=== PATIENT | male | born 1945 | race Caucasian/White ===

== ENCOUNTER 2016-08-15 00:18 | Emergency (ER) | payer OTHER ==
[2016-08-15] MEDS ORDERED: KETOROLAC 15 MG/ML VIAL IVP STA (00:35)
[2016-08-15] MEDS ORDERED: SODIUM CHLORIDE 0.9% 1,000 ML IV ONE (00:35)
[2016-08-15] MEDS ORDERED: ONDANSETRON 4 MG/2 ML VIAL IVP STA (00:35)
[2016-08-15] MEDS ORDERED: KETOROLAC 30 MG/ML VIAL ONE (00:59)
[2016-08-15] MEDS ORDERED: oxyCODONE/ACET 5/325 Prepack 4 PO STA (03:25)
[2016-08-15] MEDS ORDERED: TAMSULOSIN 0.4 MG CAPSULE PO STA (03:25)
[2016-08-15] MEDS ORDERED: TAMSULOSIN 0.4 MG CAPSULE ONE (03:35)
[2016-08-15] MEDS ORDERED: oxyCODONE/ACET 5/325 Prepack 4 PO ONE (03:35)
== END 2016-08-15 03:42 | disposition home or self-care (01) ==
DX: N20.1 Calculus of ureter (principal); I10 Essential (primary) hypertension; Z79.82 Long term (current) use of aspirin
CPT/HCPCS: 36415; 74176; 80053; 81001; 83690; 85025; 87086; 96374; 99283; 99284; A9270

== ENCOUNTER 2018-08-20 09:53 | Outpatient (CLI) | payer OTHER ==
--- NOTE | 2018-08-22 05:10 | CT Report ---
Reason: DIPLOPIA,OTHER SPECIFIED SYMPTOMS AND SIGNS INVOLV Procedure Date: 08/20/2018 Accession Number: [id number] / [id number] Procedure: CT - HEAD WO CPT Code: FULL RESULT: EXAM: CT HEAD EXAM DATE: 08/20/2018 10:05 AM. CLINICAL HISTORY: Blurred vision COMPARISON: None. TECHNIQUE: Multiaxial CT images were obtained from the foramen magnum to the vertex. Reformats: Sagittal and coronal. IV contrast: None. In accordance with CT protocol optimization, one or more of the following dose reduction techniques were utilized for this exam: automated exposure control, adjustment of mA and/or KV based on patient size, or use of iterative reconstructive technique. FINDINGS: Parenchyma: No intraparenchymal hemorrhage. No evidence of mass, midline shift or CT findings of acute infarction. Remote right cerebellar small infarct. Quiros-white differentiation is distinct. Diffuse minimal chronic microangiopathic white matter changes are evident. Extraaxial Spaces: Normal for age. No subdural or epidural collections identified. Ventricles: The ventricles and cortical sulci are enlarged, consistent with age-related tissue loss. Sinuses: Imaged paranasal sinuses, orbits, and mastoids show no significant abnormality. Bones: No evidence of fracture or calvarial defect. Other: None. IMPRESSION: 1. Remote right cerebellar small infarct. 2. Minimal senescent changes. 3. No evidence of acute intracranial abnormality. RADIA
== END 2018-08-20 09:54 | disposition home or self-care (01) ==
LOC: DI 09:53
PROVIDERS: ATTEND Nurse Practitioner Family
DX: H53.2 Diplopia (principal); R09.89 Other specified symptoms and signs involving the circulatory and respiratory systems
CPT/HCPCS: 70450

== ENCOUNTER 2018-09-06 13:05 | Outpatient (CLI) | payer OTHER ==
--- NOTE | 2018-09-07 07:24 | MRI Report ---
Reason: DIPLOPIA Procedure Date: 09/06/2018 Accession Number: [id number] / [id number] Procedure: MRI - Angio Brain W/O (MRA) CPT Code: FULL RESULT: EXAM MRA BRAIN EXAM DATE: 09/06/2018 02:15 PM. CLINICAL HISTORY: Diplopia. COMPARISON: CT HEAD W/O 08/20/2018 10:01 AM. TECHNIQUE: Multiplanar, multisequence MRA sequences of the brain were performed. Other: None. Post-processing: Multiplanar 3D MIP reconstructions. IV Contrast: None. FINDINGS: RIGHT Internal Carotid (ICA): A 2.3 x 1.3 mm conical outpouching is seen projected medially from the proximal C4 cavernous segment. Otherwise patent. No stenosis. Middle Cerebral (MCA): No aneurysm, stenosis or anomaly. Anterior Cerebral (VÍCTOR): No aneurysm, stenosis or anomaly. Posterior Cerebral (LAUNDRY OPERATOR): No aneurysm, stenosis or anomaly. Posterior Communicating (P-COM): Not visualized. Vertebral: No aneurysm, stenosis or anomaly in the visualized upper vertebral artery. Small in caliber. Dominant right PICA is seen arising from the distal V4 segment. LEFT Internal Carotid (ICA): No aneurysm, stenosis or anomaly. Middle Cerebral (MCA): No aneurysm, stenosis or anomaly. Anterior Cerebral (VÍCTOR): No aneurysm, stenosis or anomaly. Posterior Cerebral (LAUNDRY OPERATOR): No aneurysm, stenosis or anomaly. Posterior Communicating (P-COM): No aneurysm, stenosis or anomaly. Small in caliber. Vertebral: No aneurysm, stenosis or anomaly in the visualized upper vertebral artery. Dominant, primarily forming the basilar artery. MIDLINE Anterior Communicating (A-COM): No aneurysm, stenosis or anomaly. Basilar Artery:No aneurysm, stenosis or anomaly. The left AICA is dominant and unremarkable. Bilateral superior cerebellar arteries are unremarkable. Other: None. IMPRESSION: 1. There is a small, 2.3 x 1.3 mm, conical outpouching projected medially from the proximal C4 cavernous segment of the right ICA. This likely represents small infundibulum at origin of meningohypophyseal trunk. Small aneurysm is considered less likely but not excludable. 2. Otherwise MRA of intracranial circulation is unremarkable. RADIA
== END 2018-09-06 13:06 | disposition home or self-care (01) ==
LOC: DI 13:05
PROVIDERS: ATTEND Nurse Practitioner Family
DX: H53.2 Diplopia (principal); R09.89 Other specified symptoms and signs involving the circulatory and respiratory systems
CPT/HCPCS: 70544

== ENCOUNTER 2018-09-13 09:51 | Outpatient (CLI) | payer OTHER ==
--- NOTE | 2018-09-14 16:18 | Ultrasound Report ---
Reason: DIPLOPIA Procedure Date: 09/13/2018 Accession Number: [id number] / [id number] Procedure: US - Carotid Doppler Complete CPT Code: FULL RESULT: EXAM: BILATERAL CAROTID AND VERTEBRAL ARTERY DUPLEX DOPPLER ULTRASOUND: EXAM DATE: 09/13/2018 10:50 AM CLINICAL HISTORY: DIPLOPIA. COMPARISON: None. TECHNIQUE: Grayscale imaging, color Doppler, and duplex spectral Doppler were used to evaluate the carotid and vertebral arteries bilaterally. Static images were obtained. FINDINGS: There is mild calcified and soft plaque within the distal common carotid as well as the carotid bulb region bilaterally. No grayscale evidence of any significant stenosis. VELOCITIES (cm/sec): Right CCA mid: PSV 79 cm/sec CCA dist: PSV 62 cm/sec ICA prox: PSV 57 cm/sec, EDV 19 cm/sec ICA mid: PSV 81 cm/sec, EDV 33 cm/sec ICA dist: PSV 52 cm/sec, EDV 25 cm/sec ECA: PSV 69 cm/sec Vert: PSV 33 cm/sec ICA/CCA: 1.03 Left CCA mid: PSV 82 cm/sec CCA dist: PSV 75 cm/sec ICA prox: PSV 56 cm/sec, EDV 20 cm/sec ICA mid: PSV 84 cm/sec, EDV 32 cm/sec ICA dist: PSV 67 cm/sec, EDV 26 cm/sec ECA: PSV 54 cm/sec Vert: PSV 72 cm/sec ICA/CCA: 1.02 ICA diameter stenosis: Right: <50% by velocity and <70% by NASCET criteria. Left: <50% by velocity and <70% by NASCET criteria. IMPRESSION: 1. Mild calcified and soft plaque within the common carotid and carotid bulb region bilaterally. 2. In the right carotid artery there are no elevated carotid artery velocities to suggest hemodynamically significant stenosis. 3. In the left carotid artery there are no elevated carotid artery velocities to suggest hemodynamically significant stenosis. 4. Normal antegrade flow is present in bilateral vertebral arteries. General Recommendations: Stenosis =50% ICA - Follow-up ultrasound 6-12 months Stenosis <50% ICA - High Risk Patient with plaque - Follow-up ultrasound 1-2 years Normal Study but High Risk Patient - Follow-up ultrasound 3-5 years Management recommendations and diagnostic criteria are based on current IAC endorsed standards in Carotid Artery Stenosis: Grayscale and Doppler Ultrasound Diagnosis. Validated velocity measurements with angiographic measurements and velocity criteria are extrapolated from diameter data as defined by the Society of Radiologists in Ultrasound Consensus Conference Radiology 2003; 229;340-346. RADIA
== END 2018-09-13 09:52 | disposition home or self-care (01) ==
LOC: DI 09:51
PROVIDERS: ATTEND Nurse Practitioner Family
DX: H53.2 Diplopia (principal); R09.89 Other specified symptoms and signs involving the circulatory and respiratory systems
CPT/HCPCS: 93880